=== PATIENT | female | born 1965 | race Caucasian/White ===

== ENCOUNTER 2024-09-26 06:16 | Day surgery (SDC) | payer MEDICARE, SELFPAY ==
[2024-09-26] VITALS (8 sets, daily range): BP systolic 81–142; BP diastolic 57–88; PULSE 62–83; RESP 16; TEMP 36.1–36.2; O2SAT 96–99; BMI 27.3
--- NOTE | 2024-09-26 06:53 | PRE.ANES_ITS ---
ASA Classification* ASA Classification ASA Classification: 2 Assessment & Plan Anesthesia* Anesthesia Assessment Anesthesia Assessment: Discussed sedation and/or anesthesia options, risks, benefits, and alternatives with patient/parents/legal guardian/POA. Questions invited. The patient/parents/legal guardian/POA seems to understand and agrees to proceed with anesthesia plan. Reviewed the physical assessment, medical history, allergy history and patient home medications list prior to surgery/procedure/anesthetic and documented any changes. Performed airway and anesthesia risk assessments. Anesthesia Type Anesthesia Type: MAC History Source History Obtained from:: Patient and Chart Anesthesia Focused Assessment* Temperature: 97.2 F Pulse Rate: 83 Blood Pressure: 142/88 Respiratory Rate: 16 Pulse Ox: 99 Oxygen Delivery Method: Room Air Airway Assessment Mouth opens: >3 cm Mallampati Score: I Teeth Condition: Loose (Patient has loose #8.) Neck Range of motion (ROM): Full ROM Focused Labs Anesthesia Preop lab: CBC WBC 12.7 K/mm3 (4.4-11.0) H 04/21/16 20:25 RBC 4.56 M/mm3 (4.2-5.4) 04/21/16 20:25 Hgb 15.0 g/dl (12.0-15.0) 04/21/16 20:25 Hct 42.6 % (37-47) 04/21/16 20:25 Plt Count 293 K/mm3 (150-450) 04/21/16 20:25 CHEMISTRY Potassium 3.7 mmol/L (3.5-5.1) 04/21/16 20:25 Sodium 139 mmol/L (136-145) 04/21/16 20:25 BUN 11 mg/dL (7-18) 04/21/16 20:25 Creatinine 1.00 mg/dL (0.55-1.20) 04/21/16 20:25 Glucose 140 mg/dL (70-110) H 04/21/16 20:25 POC Glucose 100 mg/dL (70-110) 04/22/16 16:11 COAG PT 12.0 SECONDS (11.7-14.9) 04/21/16 20:25 Pre-Assessment Diagnosis/Proposed Procedure Planned Operative Procedure(s): CSCOPE Anesthesia History Anesthesia History - senior training and development rep: Anesthesia History - senior training and development rep Hx Hospitalization No 09/25/24 11:09 Any Problems With Anesthesia No 09/25/24 11:09 Cholinesterase deficiency No 09/25/24 11:09 You/Your Family Experience No 09/25/24 11:09 fever (hyperthermia) with Relationship Recent Exposure to Contagious No 09/26/24 06:39 Disease Does patient have nerve No 09/25/24 11:09 stimulator Patient instructed to have device shut off --Does patient have Pacemaker No 09/26/24 06:39 or ICD? When Was Last Pacemaker Check QUESTION #4 FULL TEXT: You/Your Family Experience fever (hyperthermia) with Anesthesia Last Oral Intake Last Oral intake: Last Oral Intake NPO since Meds taken in AM with sips of water? Meds patient instructed to take am of surgery Any additional information?: Yes NPO since: 04:30 (Patient finished prep at 4:30 AM.) PONV PONV - senior training and development rep: PONV - senior training and development rep Female Yes 09/25/24 11:09 HX of Motion Sickness Yes 09/25/24 11:09 HX of N/V After Surgery Yes 09/25/24 11:09 Non-Smoker No 09/25/24 11:09 Duration of Surgery greater No 09/25/24 11:09 than 60 minutes Number of Risk Factors 3 09/25/24 11:09 PONV Score Moderate Risk 09/25/24 11:09 Height & Weight Height & Weight: Anesthesia: Height & Weight Height 5 ft 11 in 09/26/24 06:39 Weight: 89 kg 09/26/24 06:39 Body Mass Index (BMI) 27.3 09/26/24 06:39 Respiratory Assessment Respiratory Assessment - senior training and development rep: Respiratory Tract Infection Hx - senior training and development rep Hx Respiratory Tract Infection No 09/25/24 11:09 STOP Sleep Apnea STOP Sleep Apnea - senior training and development rep: STOP Sleep Apnea - senior training and development rep Hx Hypertension No 09/25/24 11:09 Hx Sleep Apnea No 09/25/24 11:09 CPAP No 04/22/16 02:13 BIPAP No 04/22/16 02:13 Do you snore loudly (louder Yes 09/25/24 11:09 than talking or can be heard Do you often feel tired/ Yes 09/25/24 11:09 fatigued/ sleepy during daytime? Has anyone observed you stop No 09/25/24 11:09 breathing during sleep? STOP Results Positive 09/25/24 11:09 QUESTION #5 FULL TEXT : Do you snore loudly (louder than talking or can be heard through closed doors)? 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 Specify any problems Hx of Preganancy in last 3 N/A 09/25/24 11:09 Months Nurse Filling Out Transfusion NBUCHER 09/25/24 11:09 & Questions: Date: 09/25/24 09/25/24 11:09 Time: 11:12 09/25/24 11:09 Patient unable to answer at this time (ie. confused, unrespo /Reproduction History /Reproductive History - senior training and development rep: /Reproductive Hx- senior training and development rep Hx Now Gestational Age (in weeks): EDC: Hx Hx Para Hx Section SAB PFSH Medical History Post-menopausal Wears glasses Marijuana use Diabetes Arthritis High cholesterol Seizures Dietary restriction History of echocardiogram Stroke/cerebrovascular accident (03/23/16) Electronic cigarette use CRPS (complex regional pain syndrome) PONV (postoperative nausea and vomiting) Family hx of colon cancer Hx of colonic polyps Patent foramen ovale Home Medications ?Medication ?Instructions ?Recorded ?Last Taken ?Type amitriptyline 10 mg tablet 10 mg PO QHS 08/13/24 Unknown History ascorbic acid (vitamin C) 1,000 mg 1 g PO QDAY 08/13/24 Unknown History tablet cholecalciferol (vitamin D3) 125 125 mcg PO QDAY 08/13/24 Unknown History mcg (5,000 unit) capsule glipizide 10 mg tablet 10 mg PO BID 08/13/24 Unknown History hydroxyzine HCl 50 mg tablet 50 mg PO 4X/DAY PRN itching 08/13/24 Unknown History lactobacillus combination no.4 3 3,000 mmu cells PO QDAY 08/13/24 Unknown History billion cell capsule (Probiotic) magnesium oxide 400 mg PO QDAY 08/13/24 Unknown History metformin 500 mg tablet 1,000 mg PO BIDCM 08/13/24 Unknown History multivitamin 1 tab PO QAM 08/13/24 Unknown History ondansetron HCl 4 mg tablet 4 mg PO Q6H PRN nausea and 08/13/24 Unknown Rx vomiting #7 tabs CANNABIS/COCONUT OIL 2 cap PO TID PRN PAIN 09/25/24 Unknown History atorvastatin 80 mg tablet 20 mg PO QHS 09/25/24 Unknown History Allergy/AdvReac Type Severity Reaction Status Date / Time semaglutide (From Ozempic) Allergy Intermediate Rash Verified 09/26/24 06:35 adhesive tape (adhesives - Allergy Raw Rash Verified 09/26/24 06:35 tape) morphine Allergy Hives Verified 09/26/24 06:35 tramadol Allergy Swelling Verified 09/26/24 06:35 hydrocodone (From Vicodin) AdvReac Nausea/Vom/ Verified 09/26/24 06:35 Diarrhea stainless steel AdvReac Shortness Verified 09/26/24 06:36 of breath Family History Grandfather Colon cancer Dx in 50's Surgical History History of exploratory laparotomy History of back surgery History of lumbar fusion Hx of section Hx of colonoscopy Social History household members: other details: current occupational status: disabled Smoking Status: Current every day smoker tobacco type: e-cigarettes Smokeless tobacco user: other Electronic Cigarette Use: with nicotine alcohol intake: never substance use type: other details: Makes own Cannibis/Coconut oil capsules. Takes every day Review of Systems (Anesthesia) ROS Narrative System reviewed and no additional complaints, except as documented.
[2024-09-26 07:16] LABS: Bedside Glucose 156 mg/dL (74-106)
--- NOTE | 2024-09-26 07:25 | CON.PCM.GI_ITS ---
HPI Consult Data Date of Consult: 09/26/24 HPI Narrative Reason for Consultation: Surveillance colonoscopy HPI Narrative: MODESTA HENSLEY, is a 59 F who presents today for surveillance colonoscopy. She had a colonoscopy 3 years ago. She had multiple polyps noted at time. She is not have any abdominal pain, cramping, chest pain or shortness of breath. She does have past medical history of type 2 diabetes which is controlled medical therapy. [facility] Medical History Post-menopausal Wears glasses Marijuana use Diabetes Arthritis High cholesterol Seizures Dietary restriction History of echocardiogram Stroke/cerebrovascular accident (03/23/16) Electronic cigarette use CRPS (complex regional pain syndrome) PONV (postoperative nausea and vomiting) Family hx of colon cancer Hx of colonic polyps Patent foramen ovale Home Medications ?Medication ?Instructions ?Recorded ?Last Taken ?Type amitriptyline 10 mg tablet 10 mg PO QHS 08/13/24 Unknown History ascorbic acid (vitamin C) 1,000 mg 1 g PO QDAY 08/13/24 Unknown History tablet cholecalciferol (vitamin D3) 125 125 mcg PO QDAY 08/13/24 Unknown History mcg (5,000 unit) capsule glipizide 10 mg tablet 10 mg PO BID 08/13/24 Unknown History hydroxyzine HCl 50 mg tablet 50 mg PO 4X/DAY PRN itching 08/13/24 Unknown History lactobacillus combination no.4 3 3,000 mmu cells PO QDAY 08/13/24 Unknown History billion cell capsule (Probiotic) magnesium oxide 400 mg PO QDAY 08/13/24 Unknown History metformin 500 mg tablet 1,000 mg PO BIDCM 08/13/24 Unknown History multivitamin 1 tab PO QAM 08/13/24 Unknown History ondansetron HCl 4 mg tablet 4 mg PO Q6H PRN nausea and 08/13/24 Unknown Rx vomiting #7 tabs CANNABIS/COCONUT OIL 2 cap PO TID PRN PAIN 09/25/24 Unknown History atorvastatin 80 mg tablet 20 mg PO QHS 09/25/24 Unknown History Allergy/AdvReac Type Severity Reaction Status Date / Time semaglutide (From Ozempic) Allergy Intermediate Rash Verified 09/26/24 06:35 adhesive tape (adhesives - Allergy Raw Rash Verified 09/26/24 06:35 tape) morphine Allergy Hives Verified 09/26/24 06:35 tramadol Allergy Swelling Verified 09/26/24 06:35 hydrocodone (From Vicodin) AdvReac Nausea/Vom/ Verified 09/26/24 06:35 Diarrhea stainless steel AdvReac Shortness Verified 09/26/24 06:36 of breath Family History Grandfather Colon cancer Dx in 50's Surgical History History of exploratory laparotomy History of back surgery History of lumbar fusion Hx of section Hx of colonoscopy Social History household members: other details: current occupational status: disabled Smoking Status: Current every day smoker tobacco type: e-cigarettes Smokeless tobacco user: other Electronic Cigarette Use: with nicotine alcohol intake: never substance use type: other details: Makes own Cannibis/Coconut oil capsules. Takes every day ROS Constitutional Constitutional: Denies fatigue, fever(s), poor appetite, weight gain or weight loss Gastrointestinal Gastrointestinal: Denies belching, bloating, change in bowel habits, change in stool character, chewing difficulty, coffee ground emesis, constipation, cramping, diarrhea, dyspepsia, dysphagia, early satiety, excessive flatus, fecal incontinence, heartburn, hematemesis, hematochezia, hemorrhoids, loose stools, melena, nausea, odynophagia, rectal bleeding, tenesmus, vomiting or weight changes Physical Exam Const alert, oriented x3, no apparent distress and healthy appearing General Appearance: cooperative GI normal to inspection, nondistended, normoactive bowel sounds, soft to palpation, non-tender and non-distended Percussion: normal to percussion Rectal Exam: deferred Lab / Micro Data Labs: Laboratory Results - last 24 hr 09/26/24 06:41: POC Glucose 156 H Assessment & Plan Assessment/Plan (1) Encounter for screening for malignant neoplasm of colon: PLAN: She was explained alternatives, benefits, risk including understanding bleeding, infection, sepsis, perforation, need for emergent surgery . She will have an ASA of 3.
--- NOTE | 2024-09-26 08:38 | OP.COLON_ITS ---
Patient Name: Cristine Beasley Procedure Date: 09/26/2024 7:58 AM Date of : 1965 Age: 59 Procedure: Colonoscopy Indications: High risk colon cancer surveillance: Personal history of colonic polyps Providers: Israel Hart DO Referring MD: Eva Gonzalez Medicines: Monitored Anesthesia Care Patient Profile: This is a 59 year old female. Refer to note in patient chart for documentation of history and physical. Last Colonoscopy: within the past 3 years. Complications: No immediate complications. Procedure: Pre-Anesthesia Assessment: - Prior to the procedure, a History and Physical was performed, and patient medications and allergies were reviewed. The patient is competent. The risks and benefits of the procedure and the sedation options and risks were discussed with the patient. All questions were answered and informed consent was obtained. Patient identification and proposed procedure were verified by the physician in the pre-procedure area. Mental Status Examination: alert and oriented. Airway Examination: normal oropharyngeal airway and neck mobility. Respiratory Examination: clear to auscultation. CV Examination: normal. Prophylactic Antibiotics: The patient does not require prophylactic antibiotics. Prior Anticoagulants: The patient has taken no anticoagulant or antiplatelet agents except for NSAID medication. ASA Grade Assessment: II - A patient with mild systemic disease. After reviewing the risks and benefits, the patient was deemed in satisfactory condition to undergo the procedure. The anesthesia plan was to use monitored anesthesia care (MAC). Immediately prior to administration of medications, the patient was re-assessed for adequacy to receive sedatives. The heart rate, respiratory rate, oxygen saturations, blood pressure, adequacy of pulmonary ventilation, and response to care were monitored throughout the procedure. The physical status of the patient was re-assessed after the procedure. After I obtained informed consent, the scope was passed under direct vision. Throughout the procedure, the patient's blood pressure, pulse, and oxygen saturations were monitored continuously. The pediatric colonoscope was introduced through the anus and advanced to the cecum, identified by appendiceal orifice and ileocecal valve. The colonoscopy was performed without difficulty. The patient tolerated the procedure well. The quality of the bowel preparation was fair. The ileocecal valve, appendiceal orifice, and rectum were photographed. Scope In: 8:05:14 AM Scope Withdrawal Time 0 hours 17 minutes 24 seconds Scope Out: 8:30:54 AM Total Procedure Duration Time 0 hours 25 minutes 40 seconds Findings: The perianal and digital rectal examinations were normal. Stool was found in the rectum, in the recto-sigmoid colon, in the sigmoid colon, in the transverse colon and in the cecum. A few small-mouthed diverticula were found in the sigmoid colon. The exam was otherwise without abnormality on direct and retroflexion views. Impression: - Preparation of the colon was fair. - Stool in the rectum, in the recto-sigmoid colon, in the sigmoid colon, in the transverse colon and in the cecum. - Diverticulosis in the sigmoid colon. - The examination was otherwise normal on direct and retroflexion views. - No specimens collected. Recommendation: - Discharge patient to home. - Resume previous diet. - Continue present medications. - Repeat colonoscopy in 3 years for surveillance. Procedure Code(s): --- Professional --- 86802, Colonoscopy, flexible; diagnostic, including collection of specimen(s) by brushing or washing, when performed (separate procedure) CPT copyright 2021 [employer]. All rights reserved. The codes documented in this report are preliminary and upon threading machine setter review may be revised to meet current compliance requirements. Israel Hart DO 09/26/2024 8:38:19 AM This report has been signed electronically. Number of Addenda: 0 Note Initiated On: 09/26/2024 7:58 AM
--- NOTE | 2024-09-26 08:39 | OP.CCLET_ITS ---
09/26/2024 Eva Gonzalez Re : Colonoscopy procedure for Cristine Beasley Dear [place] This procedure was performed on September. My impressions and recommendations are as follows: Impressions : - Preparation of the colon was fair. - Stool in the rectum, in the recto-sigmoid colon, in the sigmoid colon, in the transverse colon and in the cecum. - Diverticulosis in the sigmoid colon. - The examination was otherwise normal on direct and retroflexion views. - No specimens collected. Recommendations : - Discharge patient to home. - Resume previous diet. - Continue present medications. - Repeat colonoscopy in 3 years for surveillance. My findings are described in the full procedure note, which is enclosed. If I can be of further assistance, please feel free to contact me at . Sincerely, Israel Hart, 09/26/2024 8:38:19 AM This report has been signed electronically.
--- NOTE | 2024-09-26 08:39 | PCM.POST.ANE ---
Anesthesia: Postop Eval I Current Vital Signs Temperature: 97 F Pulse Rate: 63 Blood Pressure: 85/61 Respiratory Rate: 16 Pulse Ox: 97 Oxygen Delivery Method: Room Air Assessment Airway patent: Yes Spontaneous unlabored respirations: Yes Mental status: Asleep nausea: No Vomiting: No Anesthesia Complication: No Fluid Hydration Crystalloid volume administer (ml): 60 Total IV fluid infused: 60 Progress Note Anesthesia document: Postop Eval 1 completed: Yes
--- NOTE | 2024-09-27 07:31 | PCM.POSTANE2 ---
Anesthesia Postop Eval I Sum Postop Eval Completion status Anesthesia document: Postop Eval 1 completed: Yes Anesthesia Postop Eval I Summary Anesthesia Postop Eval I Summary: Anesthesia Postop Eval I: Assessment Summary Airway patent Yes 09/26/24 08:41 [email or web address] Spontaneous unlabored Yes 09/26/24 08:41 [email or web address] respirations Mental status Asleep 09/26/24 08:41 [email or web address] nausea No 09/26/24 08:41 [email or web address] Vomiting No 09/26/24 08:41 [email or web address] Anesthesia Postop Eval I: Fluid Summary Crystalloid volume administer 60 09/26/24 08:41 [email or web address] (ml) Colloids volume administered ( ml) Blood Product volume administered (ml) Total IV fluid infused 60 09/26/24 08:41 [email or web address] Anesthesia Postop Eval I: Summary Notes Anesthesia Complication No 09/26/24 08:41 [email or web address] Anesthesia Complication Comment: Post-operative progress note Anesthesia: Postop Eval II Evaluation Mental status: Awake Pain Level: 0 nausea: No Vomiting: No
== END 2024-09-26 09:33 | disposition home or self-care (01) ==
LOC: EN 06:17 → AC 06:20
PROVIDERS: PCP Registered Nurse; Referring Provider Registered Nurse; Visit Provider Internal Medicine Gastroenterology
PROC: 0DJD8ZZ Inspection of Lower Intestinal Tract, Via Natural or Artificial Opening Endoscopic (ICD-10-PCS; CPT 45378; principal; 2024-09-26 07:25)
DX: Z12.11 Encounter for screening for malignant neoplasm of colon (principal); E11.9 Type 2 diabetes mellitus without complications; K57.30 Diverticulosis of large intestine without perforation or abscess without bleeding; E78.00 Pure hypercholesterolemia, unspecified; F17.290 Nicotine dependence, other tobacco product, uncomplicated; Z86.0100 Personal history of colon polyps, unspecified; Z79.899 Other long term (current) drug therapy; Z79.84 Long term (current) use of oral hypoglycemic drugs; Z86.73 Personal history of transient ischemic attack (TIA), and cerebral infarction without residual deficits; Z80.0 Family history of malignant neoplasm of digestive organs
CPT/HCPCS: 45378; 82962; A4216; J2405